=== PATIENT | female | born 1965 | race Caucasian/White ===

== ENCOUNTER 2017-02-06 15:02 | Emergency (ER) | payer OTHER ==
[2017-02-06] MEDS ORDERED: diphenhydrAMINE HCl 50 MG/ML 1 ML VIAL ONE (15:57)
[2017-02-06] MEDS ORDERED: Prochlorperazine 10 MG/2 ML VIAL ONE (15:57)
[2017-02-06 16:05] LABS: #Basophils 0.1 thou/uL (0.0-0.2); #Eosinphils 0.1 thou/uL (0.0-0.7); #Lymphocytes 4.1 thou/uL (1.20-3.40); #Monocytes 0.6 thou/uL (0.11-0.59); #Neutrophils 3.4 thou/uL (1.40-6.50); %Basophils 0.9 % (0.0-1.0); %Eosinophils 1.7 % (0.0-10.0); %Lymphocytes 49.2 % (21.0-51.0); %Monocytes 6.8 % (0.0-10.0); %Neutrophils 41.5 % (42.0-75.0); Hemoglobin 14.1 g/dL (12.0-16.0); Mean Corpuscular HGB CONC 33.2 g/dL (32.0-36.0); Mean Corpuscular Hemoglobin 29.7 pg (27.0-31.0); Mean Corpuscular Volume 89.4 fl (81.0-99.0); Mean Platelet Volume 10.9 fL (7.4-10.4); Platelet Count 218 thou/uL (130-400); RBC Distribution Width 12.1 % (11.5-14.5); Red Blood Cell (RBC) Count 4.73 mill/uL (4.20-5.40); White Blood Cell (WBC) Count 8.2 thou/uL (4.8-10.8)
[2017-02-06 16:17] LABS: ALT (SGPT) 17 U/L (0-55); AST (SGOT) 19 U/L (5-34); Albumin 4.3 g/dL (3.5-5.0); Alkaline Phosphatase 83 U/L (40-150); Anion Gap 15 mmol/L (10-20); BUN (Urea Nitrogen) 12 mg/dL (7.0-18.7); Bilirubin, Total 0.3 mg/dL (0.2-1.2); Calc. Creatinine Clearance 0 mL/min (70-130); Calcium 9.6 mg/dL (7.8-10.44); Carbon Dioxide 28 mmol/L (22-29); Chloride 103 mmol/L (98-107); Estimated GFR-MDRD 62; Globulin 3.6 g/dL (2.4-3.5); Glucose 104 mg/dL (70-105); Potassium 3.4 mmol/L (3.5-5.1); Protein, Total 7.9 g/dL (6.0-8.3); Sodium 143 mmol/L (136-145)
[2017-02-06 16:19] LABS: Troponin I Less than 0.010 ng/mL (< 0.028)
[2017-02-06 16:26] LABS: Bilirubin Negative (Negative); Blood, Urine Trace (Negative); Clarity Clear (Clear); Glucose, Urine (Dipstick) Negative (Negative); Leukocyte Negative (Negative); Nitrite Negative (Negative); Protein, Urine (Dipstick) Negative (Neg-Trace); Urobilinogen 0.2 mg/dL (0.2-1.0)
[2017-02-06 16:28] LABS: Bacteria/HPF Rare-Few HPF (None Seen); RBC/HPF 0-3 HPF (0-3); Squamous Epithelial 0-3 HPF (0-3); WBC/HPF None Seen HPF (0-3)
--- NOTE | 2017-02-07 07:02 | CT ---
PRELIMINARY REPORT/[facility]/EMERGENCY AFTER HOURS PROCEDURE: EXAM: CT Head Without Intravenous Contrast CLINICAL HISTORY: 51 years old, female; Signs and symptoms; Numbness / parasthesia; Left; Patient HX: AMS with left sided facial/arm weakness TECHNIQUE: Axial computed tomography images of the head/brain without intravenous contrast. EXAM DATE/TIME: 02/06/2017 3:30 PM COMPARISON: No relevant prior studies available. FINDINGS: Brain: Unremarkable for age. No acute intracranial hemorrhage. No acute midline shift. Ventricles: No hydrocephalus. Basal cisterns preserved. Bones/joints: unremarkable for age. Soft tissues: See other sections of this report. Sinuses: Visualized portions unremarkable. Mastoid air cells: Aerated. IMPRESSION: - Unremarkable for age. Thank you for allowing us to participate in the care of your patient. Dictated and Authenticated by: Desmond Dolan MD 02/06/2017 3:52 PM Central Time ([place] \T\ [place]) FINAL REPORT CT OF THE BRAIN WITHOUT CONTRAST 02/06/[address] was done emergently for evaluation of numbness and headache. The ventricles are normal in size with no shift. No intracranial bleeding or subarachnoid blood was seen. There is no sign of mass, edema, or stroke. The visible paranasal sinuses are clear, as are th e mastoid air cells. The calvarium appears intact. IMPRESSION: No acute intracranial findings. Report in agreement with preliminary reading by [place]. POS: HOME
== END 2017-02-06 17:15 | disposition home or self-care (01) ==
LOC: BURERS 15:02
DX: R20.2 Paresthesia of skin (principal); R51 Headache; I10 Essential (primary) hypertension; Z79.899 Other long term (current) drug therapy
CPT/HCPCS: 36415; 70450; 80053; 81003; 81015; 82553; 84484; 85025; 93005; 96374; 96375; J0780; J1200